=== PATIENT | female | born 1970 | race Hispanic/Latino ===

== ENCOUNTER 2022-12-25 13:35 | Emergency (ER) | payer OTHER ==
[~2022-12-25] VITALS: Ht 154.9 cm; Wt 51.7 kg
[2022-12-25] MEDS ORDERED: DIPHTH/TETANUS/ACEL. PERTUSSIS 0.5 ML SYR IM ONE (13:45)
== END 2022-12-25 16:32 | disposition home or self-care (01) ==
LOC: ER 13:43
DX: S60.121A Contusion of right index finger with damage to nail, initial encounter (principal); M79.644 Pain in right finger(s); W22.8XXA Striking against or struck by other objects, initial encounter; Y99.0 Civilian activity done for income or pay
CPT/HCPCS: 90714; 99283